=== PATIENT | female | born 1985 | race Caucasian/White ===

== ENCOUNTER → 2017-07-24 | Outpatient (CLI) | payer OTHER ==
[~2017-07-24] MED LIST: CEPH-368 PO; HYDR-882 PO; NONE PER PT; ONDA4TAB10 PO
== END | disposition home or self-care (01) ==
LOC: STAR 13:32
PROVIDERS: ATTEND Otolaryngology
DX: Z02.9 Encounter for administrative examinations, unspecified (principal)

== ENCOUNTER 2017-07-29 11:37 | Inpatient (IN) | payer OTHER ==
[~2017-07-29] VITALS: Ht 165.1 cm; Wt 76.6 kg
[~2017-07-29 11:37] MED LIST changes: -CEPH-368 PO; -HYDR-882 PO; -ONDA4TAB10 PO
[2017-07-29 12:36] LABS: HCG UR OBC PASS
[2017-07-29] MEDS ORDERED: LACTATED RINGERS 1,000 ML IV SCH (12:39)
[2017-07-29] MEDS ORDERED: MICROFIBRILLAR COLLAGEN 70X35X1 DRESSING ONE (12:53)
[2017-07-29] MEDS ORDERED: LIDOCAINE/PF 1%, 30ML ONE (12:53)
[2017-07-29] MEDS ORDERED: EPINEPHRINE 1 MG/ML, 1ML ONE (12:54)
[2017-07-29] MEDS ORDERED: LIDOCAINE 1%, 2ML SQ PRN (13:00)
[2017-07-29] MEDS ORDERED: MIDAZOLAM 1 MG/ML, 2ML ONE (13:09)
[2017-07-29] MEDS ORDERED: FENTANYL PF 100 MCG/2ML ONE (13:09)
[2017-07-29] MEDS ORDERED: SUCCINYLCHOLINE 20 MG/ML, 10ML ONE (13:39)
[2017-07-29] MEDS ORDERED: ONDANSETRON 2MG/ML, 2ML ONE (13:39)
[2017-07-29] MEDS ORDERED: CEFAZOLIN 1,000 MG ONE (13:39)
[2017-07-29] MEDS ORDERED: DEXAMETHASONE 4 MG/ML, 1ML ONE (13:39)
[2017-07-29] MEDS ORDERED: PROPOFOL 10 MG/ML, 20ML ONE (13:39)
[2017-07-29] MEDS ORDERED: HYDROmorphone 2 MG/ML, 1ML ONE (14:28)
[2017-07-29] MEDS ORDERED: OXYcodone 5 MG/5 ML ORAL.SOL UDC ONE (16:04)
[2017-07-29] MEDS ORDERED: OXYcodone 5 MG/5 ML ORAL.SOL UDC PO PRN (16:30)
[2017-07-29] MEDS ORDERED: ONDANSETRON 2MG/ML, 2ML IVPush PRN (16:30)
[2017-07-29] MEDS ORDERED: PROMETHAZINE 25 MG/ML, 1ML IV PRN (16:30)
[2017-07-29] MEDS ORDERED: FENTANYL PF 100 MCG/2ML IV PRN (16:30)
[2017-07-29] MEDS ORDERED: ACETAMINOPHEN 325 MG TABLET PO PRN (16:30)
[2017-07-29] MEDS ORDERED: KETOROLAC 30 MG/1 ML IV PRN (17:00)
[2017-07-29] MEDS ORDERED: morphine SULFATE 10 MG/ML, 1ML IV PRN (17:00)
[2017-07-29] MEDS ORDERED: ONDANSETRON 2MG/ML, 2ML IV PRN (17:00)
[2017-07-29 20:00] VITALS: BP 104/68
[2017-07-29] MEDS: CEFAZOLIN PMX 1GM/50ML 50 ML IVPB SCH (21:34)
[2017-07-29] MEDS: D5%-0.45% NACL 1,000 ML IV SCH (22:33)
[2017-07-30 00:13] VITALS: BP 96/57
[2017-07-30 03:52] VITALS: BP 95/54
[2017-07-30] MEDS: CEFAZOLIN PMX 1GM/50ML 50 ML IVPB SCH (05:56)
[2017-07-30 07:43] VITALS: BP 91/60
[2017-07-30] MEDS: D5%-0.45% NACL 1,000 ML IV SCH (08:57)
[2017-07-30 13:14] VITALS: BP 102/67
[2017-07-30] MEDS ORDERED: MORPHINE SULFATE 4 MG/ML, 1ML ONE (15:12)
[2017-07-30] MEDS ORDERED: CEPH-368 PO (16:51)
[2017-07-30] MEDS ORDERED: HYDR-882 PO (16:51)
[2017-07-30] MEDS ORDERED: ONDA4TAB10 PO (16:52)
== END 2017-07-30 18:18 | disposition home or self-care (01) | DRG 627 ==
LOC: OUT 11:37 → EDSTATUS 13:30 → OUT 16:50 → 4NOR 16:51 → OBSVTOIN 07-30 09:57
PROVIDERS: ADMIT Otolaryngology; ATTEND Otolaryngology
PROC: 0GBH0ZZ Excision of Right Thyroid Gland Lobe, Open Approach (ICD-10-PCS; principal; 2017-07-29 13:30)
DX: C73 Malignant neoplasm of thyroid gland (principal)
CPT/HCPCS: 81025; 88307; C1729; G0378; J0171; J0690; J1100; J1170; J2250; J2405; J2704; J3010; J3490; C1760; J0330; J2270; J7120

== ENCOUNTER 2017-10-26 09:08 | Emergency (ER) | payer OTHER ==
[~2017-10-26] VITALS: Ht 167.6 cm; Wt 71.0 kg
[~2017-10-26 09:08] MED LIST changes: +CEPH-368 PO; +HYDR-882 PO; +ONDA4TAB10 PO
[2017-10-26 09:11] VITALS: BP 123/86
[2017-10-26] MEDS ORDERED: FLUORESCEIN OPHTHALMIC 1 MG STRIP ONE (09:30)
[2017-10-26] MEDS ORDERED: PROPARACAINE OPHTH 0.5%, 15ML ONE (09:30)
[2017-10-26] MEDS ORDERED: TOBRAMYCIN/DEXAMETH OPHTH SUSP 2.5ML OP STA (09:45)
== END 2017-10-26 10:35 | disposition home or self-care (01) ==
LOC: ED 10:00
DX: H10.231 Serous conjunctivitis, except viral, right eye (principal)
CPT/HCPCS: 99283